=== PATIENT | female | born 1990 | race Caucasian/White ===

== ENCOUNTER 2017-02-04 08:52 | Emergency (ER) | payer OTHER ==
[2017-02-04 08:52] VITALS: BMI 28.8
[2017-02-04 09:03] VITALS: BP 108/72; PULSE 103; RESP 19; TEMP 98.5; O2SAT 97
--- NOTE | 2017-02-04 09:56 | C.PDOC ---
History Of Present Illness A 26 year old female with a history of Asthma, presents to the emergency room for the evaluation of dry cough and nasal congestion that has gradually developed for the past 3-4 days. Patient reports to be 5 months . Patient otherwise denies fever, chills, headache, dizziness, vertigo, drooling, dysphagia, dyspnea, chest pain, shortness of breath, wheezing, abd. pain, nausea , vomiting, diarrhea, back pain, UTI sx, vaginal bleeding or any other complaints. Patient sts, " I just need my Asthma medication since I ran out of it at home". Pt present with son who also patient of ED with similar sx, not n any apparent distress. Time Seen by Provider: 02/04/17 09:34 Chief Complaint (Nursing): Respiratory Distress History Per: Patient History/Exam Limitations: None Onset/Duration Of Symptoms: Days (3-4), Gradual Current Symptoms Are (Timing): Still Present Severity: Mild Past Medical History Reviewed: Historical Data, Nursing Documentation, Vital Signs Vital Signs: Last Vital Signs Temp 98.5 F 02/04/17 09:03 Pulse 103 H 02/04/17 09:03 Resp 19 02/04/17 09:03 BP 108/72 02/04/17 09:03 Pulse Ox 97 02/04/17 10:46 - Medical History PMH: Asthma Surgical History: - [facility] Procedures EXTRACTION OF POC, LOW CERVICAL, OPEN APPROACH (11/10/15) Family History: States: Unknown Family Hx - Social History Hx Tobacco Use: No Hx Alcohol Use: No Hx Substance Use: No - Immunization History Hx Tetanus Toxoid Vaccination: No Hx Influenza Vaccination: No Hx Pneumococcal Vaccination: No Review Of Systems Except As Marked, All Systems Reviewed And Found Negative. Constitutional: Negative for: Fever, Chills ENT: Positive for: Nose Congestion Cardiovascular: Negative for: Chest Pain Respiratory: Positive for: Cough (Dry cough). Negative for: Shortness of Breath Gastrointestinal: Negative for: Nausea, Vomiting, Diarrhea Physical Exam - Physical Exam Appears: Well, Non-toxic Skin: Normal Color, Warm, Dry, No Rash Eye(s): bilateral: PERRL Ear(s): Bilateral: Normal Nose: Discharge (B/L nasal congestion with scant clear rhinorhea), No Tenderness Oral Mucosa: Moist Tongue: Normal Appearing, No Swelling Lips: Normal Appearing, No Swelling Throat: Normal, No Erythema, No Exudate, No Drooling Neck: Normal ROM, Trachea Midline, No Midline Cervical Tenderness, No Paracervical Tenderness, Supple Cardiovascular: Rhythm Regular Respiratory: No Decreased Breath Sounds, No Accessory Muscle Use, No Rales, No Rhonchi, No Stridor, No Wheezing Gastrointestinal/Abdominal: Soft, No Tenderness, No Guarding, No Rebound, Other (Gravid) Back: No CVA Tenderness Extremity: Normal ROM, No Pedal Edema Neurological/Psych: Oriented x3, Normal Speech, Normal Cognition ED Course And Treatment O2 Sat by Pulse Oximetry: 97 Pulse Ox Interpretation: Normal Progress Note: On re-eavluation, pt is afebrile, hemodynamicaly stable. Non- toxic. AMbulatory in ED with stable gait. PulseOx 97% RA. ENT: no acute findings. Neck: (-) meningeal sign. Lungs: CTA B/L, BS equal B/L. Abd: benign. Pt has clinical findings c/w URI sx r/o seasonal allergy, hx of asthma. Pt advised. ref. to F/u with PMD In 2-3 days for re-eavl. return if any new changes. Disposition Counseled Patient/Family Regarding: Diagnosis, Need For Followup, Rx Given - Disposition Referrals: [facility] [Outside] [facility] [Outside] Disposition: HOME/ ROUTINE Disposition Time: 09:54 Condition: STABLE Additional Instructions: Encourage fluids nebulizer treatment twice daily Follow up with PMD in 2-3 days for re-evaluation. Return to ED if any worsening or new changes. Prescriptions: Albuterol 0.083% [Albuterol 0.083% Inhal Missy (2.5 mg/3 ml) UD] 2.5 mg IH Q6 #50 neb Albuterol HFA [Ventolin HFA 90 mcg/actuation (8 g)] 1 puff IH Q6 #1 inhaler Prednisone [Deltasone] 20 mg PO DAILY #3 tablet Instructions: Asthma (ED) - Clinical Impression Clinical Impression: Asthma - Scribe Statement The provider has reviewed the documentation as recorded by the Chelyibjosias Blue All medical record entries made by the Scribe were at my direction and personally dictated by me. I have reviewed the chart and agree that the record accurately reflects my personal performance of the history, physical exam, medical decision making, and the department course for this patient. I have also personally directed, reviewed, and agree with the discharge instructions and disposition.
== END 2017-02-04 10:44 | disposition home or self-care (01) ==
LOC: C.ER 08:52
DX: O99.512 Diseases of the respiratory system complicating pregnancy, second trimester (principal); J45.909 Unspecified asthma, uncomplicated; Z3A.20 20 weeks gestation of pregnancy

== ENCOUNTER 2017-03-04 08:39 | Emergency (ER) | payer OTHER ==
[2017-03-04 08:39] VITALS: BMI 28.8
--- NOTE | 2017-03-04 08:47 | C.PDOC ---
History Of Present Illness 26-year-old female, presents to the emergency department with complaints of persistent asthma x1 month. Patient seen on 02/04, discharged with Prednisone and Albuterol, but did not take Prednisone "because my OB said it isn't good for the baby." States ran out of Albuterol. States she gets more frequent asthma while . EGA 6 months. Patient is s/p nebulizer prior to arrival w/ improvement. Pt complaining of mild residual wheezing. Denies other associated symptoms. CO PERSIST ASTHMA X 1 MO. SEEN 02/04, DC W PREDNISONE AND ALBUTEROL BUT DID NOT TAKE PREDNISONE "BC MY OB SAID IT ISNT GOOD FOR THE BABY". STATES RAN OUT OF ALBUTEROL. STATES GETS MORE FREQ ASTHMA WHILE . EGA 6 MONTHS. 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 CO MILD RESIDUAL WHEEZING. DENIES OTHER ASSOC SX EXAM NARD NONTOXIC LUNGS OCC EXP WHEEZE SCATTERED SPEAKING FULL SENTENCES NO RETRACTIONS REMAINDE RNEG MDM RISKS/BENEFITS OF PREDNISONE D/W PT, VOICES UNDERSTANDING OF SAME. AGREES W MGMT PLAN, WILL DOSE STEROID NOW AND REFILL MEDS. PT OFFERED ALBUTEROL DOSE NOW BUT DOES NOT WISH @ THIS TIME. Time Seen by Provider: 03/04/17 08:46 Chief Complaint (Nursing): Respiratory Distress History Per: Patient History/Exam Limitations: no limitations Onset/Duration Of Symptoms: Days Current Symptoms Are (Timing): Still Present Past Medical History Reviewed: Historical Data, Nursing Documentation, Vital Signs Vital Signs: Last Vital Signs Temp 98.5 F 03/04/17 09:42 Pulse 88 03/04/17 09:42 Resp 18 03/04/17 09:42 BP 122/76 03/04/17 09:42 Pulse Ox 100 03/04/17 09:42 - Medical History PMH: Asthma Surgical History: - [facility] Procedures EXTRACTION OF POC, LOW CERVICAL, OPEN APPROACH (11/10/15) Family History: States: No Known Family Hx - Social History Hx Tobacco Use: No Hx Alcohol Use: No Hx Substance Use: No - Immunization History Hx Tetanus Toxoid Vaccination: No Hx Influenza Vaccination: No Hx Pneumococcal Vaccination: No Review Of Systems Except As Marked, All Systems Reviewed And Found Negative. Constitutional: Negative for: Fever, Chills Cardiovascular: Negative for: Chest Pain, Palpitations Respiratory: Positive for: Shortness of Breath, Wheezing Gastrointestinal: Negative for: Nausea, Vomiting Genitourinary: Negative for: Vaginal Discharge, Vaginal Bleeding Physical Exam - Physical Exam Appears: Non-toxic, No Acute Distress Skin: Warm, Dry, No Rash Eye(s): bilateral: Normal Inspection Nose: Normal Oral Mucosa: Moist Neck: Normal ROM Respiratory: No Accessory Muscle Use, Wheezing, Other ( OCC EXP WHEEZE SCATTERED SPEAKING FULL SENTENCES NO RETRACTIONS) Extremity: Normal ROM ED Course And Treatment O2 Sat by Pulse Oximetry: 99 Progress - Re-Evaluation Re-evaluation Note: 03/04/17 09:10 D/W DR RAMOS ADVISES NO CONTRAINDICATION FOR 5 DAY PREDNISONE DOSING. - Data Reviewed Data Reviewed: Old records - Continuity of Care Discussed patient case with:: Patient Discussed pt. case with websphere consultant/specialty: Obstetrics/Gynecology Medical Decision Making Medical Decision Making: RISKS/BENEFITS OF PREDNISONE D/W PT, VOICES UNDERSTANDING OF SAME. AGREES W MGMT PLAN, WILL DOSE STEROID NOW AND REFILL MEDS. PT OFFERED ALBUTEROL DOSE NOW BUT DOES NOT WISH @ THIS TIME Disposition Counseled Patient/Family Regarding: Diagnosis, Need For Followup, Rx Given - Disposition Referrals: [facility] [Outside] [facility] [Outside] [facility] [Other] Disposition: HOME/ ROUTINE Disposition Time: : Condition: IMPROVED Prescriptions: Albuterol 0.083% [Albuterol Sulfate 3 Ml] 3 ml IH Q4 #30 neb Albuterol HFA [Ventolin HFA 90 mcg/actuation (8 g)] 1 puff IH Q4 #1 inhaler predniSONE [Prednisone] 60 mg PO DAILY #12 tab Instructions: Asthma (ED) - Clinical Impression Clinical Impression: Exacerbation of asthma,
[2017-03-04 09:43] VITALS: BP 122/76; PULSE 88; RESP 18; TEMP 98.5
[2017-03-04 10:51] VITALS: O2SAT 99
== END 2017-03-04 09:44 | disposition home or self-care (01) ==
LOC: C.ER 08:39
DX: O99.512 Diseases of the respiratory system complicating pregnancy, second trimester (principal); J45.901 Unspecified asthma with (acute) exacerbation; Z3A.24 24 weeks gestation of pregnancy

== ENCOUNTER 2017-04-14 17:14 | Emergency (ER) | payer OTHER ==
[2017-04-14 17:14] VITALS: BMI 28.8
--- NOTE | 2017-04-14 17:46 | C.PDOC ---
History Of Present Illness 26 y/o female referred to ED by Dr Spears for rhogam shot. Expected due date 06/15/17. Denies abdominal pain, vomiting, vaginal bleeding or any other complaints. Time Seen by Provider: 04/14/17 17:37 Chief Complaint (Nursing): Medical Clearance History Per: Patient History/Exam Limitations: no limitations Severity: None Recent travel outside of the [place]: No Past Medical History Reviewed: Historical Data, Nursing Documentation, Vital Signs Vital Signs: Last Vital Signs Temp 98.3 F 04/14/17 17:20 Pulse 121 H 04/14/17 17:20 Resp 16 04/14/17 17:20 BP 118/81 04/14/17 17:20 Pulse Ox 100 04/14/17 17:56 - Medical History PMH: Asthma Surgical History: - [facility] Procedures EXTRACTION OF POC, LOW CERVICAL, OPEN APPROACH (11/10/15) Family History: States: Unknown Family Hx - Social History Hx Tobacco Use: No Hx Alcohol Use: No Hx Substance Use: No - Immunization History Hx Tetanus Toxoid Vaccination: No Hx Influenza Vaccination: No Hx Pneumococcal Vaccination: No Review Of Systems Constitutional: Negative for: Fever Gastrointestinal: Negative for: Vomiting, Abdominal Pain Genitourinary: Negative for: Vaginal Bleeding Physical Exam - Physical Exam Appears: Non-toxic, No Acute Distress Skin: Warm, Dry, No Rash Head: Atraumatic, Normacephalic Chest: Symmetrical Cardiovascular: Rhythm Regular, No Murmur Respiratory: Normal Breath Sounds, No Rales, No Rhonchi, No Wheezing Gastrointestinal/Abdominal: Normal Exam, No Tenderness Extremity: Bilateral: Atraumatic Neurological/Psych: Oriented x3, Normal Speech ED Course And Treatment O2 Sat by Pulse Oximetry: 100 (room air) Pulse Ox Interpretation: Normal Disposition Counseled Patient/Family Regarding: Studies Performed, Diagnosis, Need For Followup - Disposition Referrals: [facility] [Outside] [facility] [Outside] Disposition: HOME/ ROUTINE Disposition Time: 19:00 Condition: IMPROVED Instructions: Rho(D) Immune Globulin (By injection) - Clinical Impression Clinical Impression: , Need for rhogam due to Rh negative mother - Scribe Statement The provider has reviewed the documentation as recorded by the Willian estevez Provider Attestation: All medical record entries made by the Chelyibjosias were at my direction and personally dictated by me. I have reviewed the chart and agree that the record accurately reflects my personal performance of the history, physical exam, medical decision making, and the department course for this patient. I have also personally directed, reviewed, and agree with the discharge instructions and disposition.
[2017-04-14 18:55] VITALS: RESP 18
[2017-04-14 19:34] VITALS: BP 128/75; PULSE 99; TEMP 98.2; O2SAT 99
== END 2017-04-14 19:33 | disposition home or self-care (01) ==
LOC: C.ER 17:14
DX: O36.0930 Maternal care for other rhesus isoimmunization, third trimester, not applicable or unspecified (principal); Z3A.00 Weeks of gestation of pregnancy not specified
CPT/HCPCS: 86850; 86900; 99282; J2792

== ENCOUNTER 2017-05-01 12:48 | Emergency (ER) | payer OTHER ==
[2017-05-01] MEDS ORDERED: Lactated Ringer's 1,000 ML IV ONE (13:05)
--- NOTE | 2017-05-01 13:28 | OBHP ---
Datetime: 05/01/2017 13:23 IP Adm Impression: , intrauterine IP Admit Plan: Observation/Evaluation Admit Comment, IP Provider: at 32+weeks came with c/o cramping started last night, irrg, 4-5/10 ,no vb, lof,+fm, no dysuria. obhx 1 x c/s pmh den med pnv all nkda psh c/s soch de ve closed a/p at 32+weeks txs ua cont andrea and efm ivf cont close observation Pelvic Type - PN: Adequate Extremities - PN: Normal Abdomen - PN: Normal Back - PN: Normal Breast - PN: Normal Lungs - PN: Normal Heart - PN: Normal Thyroid - PN: Normal Neurologic - PN: Normal HEENT - PN: Normal General - PN: Normal FHR - Baseline A Provider: 130 Contraction Comments Provider: q1-4 Comments, ACOG Physical Exam: gravid,non tender ext no edema,no calf ten IP Hx Assessment: The History has been Reviewed and is Current EGA AdmitDate IP: 32.2 Vital Signs Provider: Reviewed; Within Normal Limits IP Chief Complaint: Uterine contractions NICHD Variability Prov Fetus A: Moderate 6-25bpm NICHD Accel Fetus A IP Provider: 10X10 FHR Category Provider Fetus A: Category I Dilatation, Provider: 0 Effacement, Provider: 0 Station, Provider: -3 Genitourinary Exam: Normal DTRs - PN: Normal
[2017-05-01 13:43] LABS: RBC URINE < 1 /hpf (0-3); URINE BILIRUBIN NEGATIVE (NEGATIVE); URINE BLOOD NEGATIVE (NEGATIVE); URINE COLOR Yellow (YELLOW); URINE GLUCOSE (UA) NORMAL (Normal); URINE KETONE 2+ mg/dL (NEGATIVE); URINE LEUKOCYTE ESTERASE NEG Leu/uL (Negative); URINE PROTEIN NEGATIVE (NEGATIVE); URINE UROBILINOGEN NORMAL mg/dL (0.2-1.0); WBC URINE 1 /hpf (0-5)
--- NOTE | 2017-05-01 14:18 | OBHP ---
Datetime: 05/01/2017 14:16 Admit Comment, IP Provider: pt was seen. feels better, no pain or vb. ua 2=le ivf given f/u in office next saturday po hyration ptl givn FHR - Baseline A Provider: 130 Contraction Comments Provider: none NICHD Variability Prov Fetus A: Moderate 6-25bpm NICHD Accel Fetus A IP Provider: 10X10 FHR Category Provider Fetus A: Category I Datetime: 05/01/2017 13:23 EGA AdmitDate IP: 32.2
--- NOTE | 2017-05-01 14:20 | OBDCSUM ---
Datetime: 05/01/2017 14:17 Discharged to, Provider: Home Follow up at, Provider: saturdaymay 07 Follow up in weeks, Provider: dr yanez office Discharge Comment, Provider: f/u in office next saturday po hyration ptl givn Discharge Diagnosis Prov Other: 32week prterm ctxs nst
== END 2017-05-01 14:17 | disposition home or self-care (01) ==
LOC: C.EROB 12:48
DX: O60.03 Preterm labor without delivery, third trimester (principal); Z3A.32 32 weeks gestation of pregnancy
CPT/HCPCS: 81001; 96360; 99283; J7120

== ENCOUNTER 2017-06-14 05:00 | Inpatient (IN) | payer OTHER ==
[2017-06-14 05:47] VITALS: BMI 27.9
[2017-06-14 06:07] LABS: BASO % 0.4 % (0.0-2.0); EOS # 0.1 K/uL (0.0-0.7); EOS % 1.1 % (0.0-4.0); HEMATOCRIT 33.5 % (34.0-47.0); LYMPH # 1.9 K/uL (1.0-4.3); LYMPH % 18.7 % (20.0-40.0); MEAN CELL VOLUME 83.6 fL (81.0-99.0); MEAN CORPUSCULAR HEMOGLOBIN 28.2 pg (27.0-31.0); MEAN CORPUSCULAR HGB CONC 33.7 g/dL (33.0-37.0); MEAN PLATELET VOLUME 10.6 fL (7.2-11.7); MONO # 0.6 K/uL (0.0-0.8); MONO % 5.6 % (0.0-10.0); NRBC % 0.1 % (0.0-2.0); RED CELL DISTRIBUTION WIDTH 13.7 % (11.5-14.5); WHITE BLOOD COUNT 9.9 K/uL (4.8-10.8)
--- NOTE | 2017-06-14 06:09 | OBHP ---
Datetime: 06/14/2017 05:15 IP Adm Impression: Term, intrauterine IP Chief Complaint Other: pain IP Admit Plan: Admit to unit; Initiate Section protocol Admit Comment, IP Provider: at 38+weeks came with c/o ctxs since last night, irrg , no vb, lof, +fm obhx 1 x c/s pmh den med pnv all nkda psh c/s soch den ve /-2 a/p at 38+weeks previous c/s in pain admit to l_d npo/ivf labs skin abxs anthesia aware informed consent taken. r/a/b disc Pelvic Type - PN: Adequate Extremities - PN: Normal Abdomen - PN: Normal Back - PN: Normal Breast - PN: Normal Lungs - PN: Normal Heart - PN: Normal Thyroid - PN: Normal Neurologic - PN: Normal HEENT - PN: Normal General - PN: Normal FHR - Baseline A Provider: 130 Contraction Comments Provider: q1-5 Comments, ACOG Physical Exam: gravid,non tender ext no edema,no calf ten IP Hx Assessment: The History has been Reviewed and is Current EGA AdmitDate IP: 38.4 Vital Signs Provider: Reviewed; Within Normal Limits IP Chief Complaint: Uterine contractions NICHD Variability Prov Fetus A: Moderate 6-25bpm NICHD Accel Fetus A IP Provider: 15X15 FHR Category Provider Fetus A: Category I Dilatation, Provider: 2 Effacement, Provider: 60 Station, Provider: -2 Genitourinary Exam: Normal DTRs - PN: Normal
[2017-06-14] MEDS ORDERED: Sodium Citrate/Citric Acid 15 ml Sol PO ONE (06:11)
[2017-06-14] MEDS ORDERED: cefOXitin IV 2 gm in Dextrose 2 GM/50 ML BAG IVPB ONE (06:11)
--- NOTE | 2017-06-14 06:14 | PCM.SURG1 ---
Surgeon's Initial Post Op Note - Surgeon's Notes Surgeon: dr diaz Fresh Food Manager: dr hua Type of Anesthesia: Spinal Anesthesia Administered By: dr malone Pre-Operative Diagnosis: 26 yr at 38+weeks previous c/s in pain Operative Findings: see the op reort Post-Operative Diagnosis: same Operation Performed: repeat section Specimen/Specimens Removed: cord blood. plcente Estimated Blood Loss: EBL {In ML}: 800 Blood Products Given: N/A Drains Used: No Drains Post-Op Condition: Good Date of Surgery/Procedure: 06/14/17 Time of Surgery/Procedure: 09:00
[2017-06-14] MEDS ORDERED: Lactated Ringer's 1,000 ML IV SCH (06:15)
[2017-06-14] MEDS ORDERED: TRIAMCINOLONE ACETON IM ONE (06:19)
[2017-06-14 06:22] LABS: ALB/GLOB RATIO 0.9 (1.0-2.1); ALKALINE PHOSPHATASE 216 U/L (38-126); ALT/SGPT 25 U/L (9-52); AST/SGOT 17 U/L (14-36); BILIRUBIN,TOTAL 0.7 mg/dL (0.2-1.3); BLOOD UREA NITROGEN 9 mg/dL (7-17); CALCIUM 9.2 mg/dl (8.6-10.4); CARBON DIOXIDE 19 mmol/L (22-30); CHLORIDE 105 mmol/L (98-107); GFR AFRICAN-AMERICAN > 60; GLUCOSE,RANDOM 77 mg/dL (65-105); POTASSIUM 3.7 mmol/L (3.6-5.2); SODIUM 138 mmol/L (132-148); TOTAL PROTEIN 6.8 g/dL (6.3-8.3)
[2017-06-14 06:26] LABS: URINE BACTERIA OCC (<OCC); URINE BILIRUBIN NEGATIVE (NEGATIVE); URINE BLOOD NEGATIVE (NEGATIVE); URINE COLOR Yellow (YELLOW); URINE GLUCOSE (UA) NORMAL (Normal); URINE KETONE 1+ mg/dL (NEGATIVE); URINE LEUKOCYTE ESTERASE NEG Leu/uL (Negative); URINE PROTEIN 1+ mg/dL (NEGATIVE); WBC URINE 1 /hpf (0-5)
[2017-06-14] MEDS ORDERED: Morphine 1 mg/ml preservative-free Inj(Duramorph) ONE (06:46)
[2017-06-14] MEDS ORDERED: Phenylephrine 10 mg/ml Inj ONE (06:46)
[2017-06-14] MEDS ORDERED: Oxytocin 20 units in LR 2,000 ML IV ONE (06:49)
[2017-06-14] MEDS ORDERED: Oxytocin 10 Units/ml Inj ONE (07:27)
--- NOTE | 2017-06-14 08:04 | OBDS ---
DELIVERY PERSONNEL Delivery Doctor: Robin Spears MD Scrub Nurse: Ankita Mahoney Armored Cable Machine Operator: Lashanda Wing RN Anesthesiologist: Maria R Solorzano MD MATERNAL INFORMATION Delivery Anesthesia: Spinal Estimated Blood Loss (ml): 800 Placenta Cultured: Yes Maternal Complications: None Provider Comments: baby deliverd in [place]. end clean no om LABOR SUMMARY EDC: 06/24/2017 00:00 No. Babies in Womb: 1 LABOR INFORMATION Group B Beta Strep: Negative STAGES OF LABOR Stage 3 hrs: 0 Stage 3 min: 1 CSECTION DELIVERY Primary Indication: Repeat Elective Other Primary Indication: labor CSection Urgency: Non Elective CSection Incidence: Repeat Labor: Labor CSection Incision: Lower Uterine Transverse BABY A INFORMATION Delivery Date/Time: 06/14/2017 07:23 Method of Delivery: Born in Route : No : N/A Forceps: N/A Vacuum Extraction: N/A Shoulder Dystocia : No SHOULDER DYSTOCIA BABY A Delivery Date/Time: 06/14/2017 07:23 PRESENTATION/POSITION BABY A Presentation: Cephalic Cephalic Presentation: Vertex Vertex Position: Left Occipital Anterior Breech Presentation: N/A PLACENTA INFORMATION BABY A Placenta Delivery Time : 06/14/2017 07:24 Placenta Method of Delivery: Manual Removal Placenta Status: Delivered SCORES BABY A Heart Rate 1 min: >100 bpm Resp Effort 1 min: Good Cry Reflex Irritability 1 min: Cough or Sneeze or Pulls Away Muscle Tone 1 min: Active Motion Color 1 min: Body [place], Extremities Blue Resuscitation Effort 1 min: Tactile Stimulation SCORE 1 MIN: 9 Heart Rate 5 min: >100 bpm Resp Effort 5 min: Good Cry Reflex Irritability 5 min: Cough or Sneeze or Pulls Away Muscle Tone 5 min: Active Motion Color 5 min: Body [place], Extremities Blue SCORE 5 MIN: 9 INFANT INFORMATION BABY A Gestational Age at Delivery: 38.4 Gestational Status: Term Infant Outcome : Liveborn Condition : Stable Infant Sex: Female IDENTIFICATION/MEDS BABY A ID Band Number: [id number] ID Band Location: Left Leg; Left Arm Sensor Applied: Yes Sensor Number: [id number] Sensor Location : Cord Clamp Vitamin K Given : Not Given Erythromycin Given: Not Given WEIGHT/LENGTH BABY A Infant Birthweight (gms): 3385 Infant Weight (lb): 7 Weight (oz): 7 CORD INFORMATION BABY A No. Cord Vessels: 3 Nuchal Cord : N/A Cord Blood Taken: Yes Suction: Mouth; Nose ASSESSMENT BABY A Complications: None Physical Findings at Delivery: Within Normal Limits Respirations: Appears Normal Beam Warper/ALS Called : No Infant Care By: Sal Pablo RN Transferred To: Remains with Mother
[2017-06-14] MEDS ORDERED: DiphenhydrAMINE 50 mg/ml Inj IVP PRN (08:51)
[2017-06-14] MEDS ORDERED: Naloxone 0.4 mg/ml Inj (Adult) IVP PRN (08:52)
[2017-06-14] MEDS ORDERED: Acetaminophen IV 1,000 MG in Premixed IV 1 EA IV STA (09:51)
[2017-06-14] MEDS: Simethicone 80 mg Chewtab PO SCH ×4 (10:00→21:44)
[2017-06-14] MEDS: Oxycodone/Acetaminophen 5/325 mg Tab PO PRN ×3 (15:01→23:37)
[2017-06-15] MEDS: Oxycodone/Acetaminophen 5/325 mg Tab PO PRN ×4 (05:04→20:39)
[2017-06-15] MEDS ORDERED: Bisacodyl 5mg EC Tab PO ONE ×2 (06:57→18:00)
[2017-06-15 08:34] LABS: HEMATOCRIT 31.1 % (34.0-47.0); MEAN CELL VOLUME 84.8 fL (81.0-99.0); MEAN PLATELET VOLUME 10.4 fL (7.2-11.7); RED CELL DISTRIBUTION WIDTH 13.7 % (11.5-14.5); WHITE BLOOD COUNT 10.8 K/uL (4.8-10.8)
[2017-06-15] MEDS: Simethicone 80 mg Chewtab PO SCH ×4 (09:09→21:46)
[2017-06-16] MEDS: Oxycodone/Acetaminophen 5/325 mg Tab PO PRN ×6 (01:04→21:57)
[2017-06-16] MEDS ORDERED: Albuterol HFA 90 mcg/actuation (8 g) INH PRN (07:39)
[2017-06-16] MEDS: Simethicone 80 mg Chewtab PO SCH ×4 (09:05→21:58)
[2017-06-17 00:04] VITALS: RESP 20
[2017-06-17] MEDS: Oxycodone/Acetaminophen 5/325 mg Tab PO PRN (02:35)
[2017-06-17] MEDS: Simethicone 80 mg Chewtab PO SCH ×2 (09:15→13:30)
[2017-06-17] MEDS ORDERED: Oxycodone/Acetaminophen 5/325 mg Tab PO PRN ×2 (10:06)
[2017-06-17] MEDS ORDERED: Measles, Mumps, and Rubella 0.5 ML VIAL SC ONE (11:07)
[2017-06-17 18:52] VITALS: BP 128/86; PULSE 100; TEMP 98.6; O2SAT 97
--- NOTE | 2017-06-19 16:11 | OP ---
PROCEDURE DATE: PREOPERATIVE DIAGNOSIS: A 26-year-old 2 para 1 at 38 weeks and 4 days with previous section. POSTOPERATIVE DIAGNOSIS: A 26-year-old 2 para 1 at 38 weeks and 4 days with previous section. SURGEON: Robin Spears MD RECYCLING MANAGER SURGEON: Dr. Vinnie Joy, who was present throughout the surgery for exposure, retraction, pushing at the time of the delivery. TYPE OF ANESTHESIA: Spinal. ANESTHESIOLOGIST: Tylor Menjivar MD COMPLICATIONS: None. ESTIMATED BLOOD LOSS: 800 mL. PROCEDURE PERFORMED: Repeat section. DESCRIPTION OF PROCEDURE: After informed consent was obtained, the patient was brought to the operating room, placed on the table, where spinal anesthesia was given. When anesthesia was found to be sufficient, she was prepped and draped in normal sterile fashion. At the site of the previous skin incision, an incision was made with a knife, the subcutaneous cut with a Bovie. The fascia was then excised on both the sides using curved Strong scissors. The fascia was first from the site of the umbilicus and then at the site of the pubic bone. The rectal muscle was lifted up with 2 Allis, it was cut using the knife, the peritoneum was incised and we went to the abdominal cavity. Bladder blade was placed. Bladder flap was created. Lower uterine segment incision was made with a knife, it was extended using curved Strong scissors. Baby delivered in a KIRK position. Cord was clamped and cut. Baby was handed over to the awaiting buckle coverer. Uterus was exteriorized and cleared of all clots and debris. The uterus incision was closed with #1 Vicryl running interlocking fashion. Second layer was closed with the same stitch and it was hemostatic. Uterus was returned back to abdominal cavity. Interceed was placed. It was looked back and again it was hemostatic. Peritoneum was closed using 2-0 Vicryl in running interlocking fashion. Muscle was closed using 2-0 Vicryl in running interlocking fashion. Fascia was closed #1 Vicryl interlocking fashion. Subcutaneous tissue was closed with 0 Vicryl in interrupted fashion. Skin was closed using starr. The patient tolerated the procedure well. Lap, sponge, and instrument counts were correct x2. Robin Spears MD [facility] # [id number]
== END 2017-06-17 14:15 | disposition home or self-care (01) | DRG 371 ==
LOC: C.EROB 05:00 → C.4D 05:15 → C.4M 11:20 → UNDODISIN 06-16 13:30
PROVIDERS: ADMIT Obstetrics & Gynecology; ATTEND Obstetrics & Gynecology
PROC: 10D00Z1 Extraction of Products of Conception, Low, Open Approach (ICD-10-PCS; principal; 2017-06-14)
DX: O34.219 Maternal care for unspecified type scar from previous cesarean delivery (principal); Z37.0 Single live birth; Z3A.38 38 weeks gestation of pregnancy

== ENCOUNTER 2017-10-23 17:33 | Emergency (ER) | payer SELFPAY ==
[2017-10-23 17:33] VITALS: BMI 27.9
[2017-10-23 17:45] VITALS: BP 111/72; PULSE 94; RESP 18; TEMP 98.3; O2SAT 95
--- NOTE | 2017-10-23 18:26 | RAD ---
HISTORY: Cough, SOB COMPARISON: None available. TECHNIQUE: Chest PA and lateral FINDINGS: Examination limited by habitus. LUNGS: No focal consolidation. Please note that chest x-ray has limited sensitivity for the detection of pulmonary masses. PLEURA: No significant pleural effusion identified. No definite pneumothorax . CARDIOVASCULAR: The cardiomediastinal silhouette appears within normal limits of size. OSSEOUS STRUCTURES: No acute osseous abnormality identified. VISUALIZED UPPER ABDOMEN: Unremarkable. OTHER FINDINGS: None. IMPRESSION: No focal consolidation, significant pleural effusion, or definite pneumothorax identified.
--- NOTE | 2017-10-23 18:27 | C.PDOC ---
Time Seen by Provider: 10/23/17 17:50 Chief Complaint (Nursing): Cough, Cold, Congestion History Per: Patient Onset/Duration Of Symptoms: Days (about 1 week) Current Symptoms Are (Timing): Still Present Associated Symptoms: Cough, Sputum, Nasal Congestion Severity: Moderate Additional History Per: Prior Records Past Medical History Reviewed: Historical Data, Nursing Documentation, Vital Signs Vital Signs: Last Vital Signs Temp 98.3 F 10/23/17 17:42 Pulse 94 H 10/23/17 17:42 Resp 18 10/23/17 17:42 BP 111/72 10/23/17 17:42 Pulse Ox 95 10/23/17 18:27 - Medical History PMH: Asthma Surgical History: - [facility] Procedures EXTRACTION OF POC, LOW CERVICAL, OPEN APPROACH (06/14/17) Family History: States: Unknown Family Hx - Social History Hx Tobacco Use: No Hx Alcohol Use: No Hx Substance Use: No - Immunization History Hx Tetanus Toxoid Vaccination: No Hx Influenza Vaccination: No Hx Pneumococcal Vaccination: No Review Of Systems Except As Marked, All Systems Reviewed And Found Negative. Constitutional: Negative for: Fever, Weakness ENT: Negative for: Throat Pain Cardiovascular: Negative for: Chest Pain Respiratory: Positive for: Cough, Shortness of Breath. Negative for: Hemoptysis Gastrointestinal: Negative for: Vomiting, Abdominal Pain Musculoskeletal: Negative for: Neck Pain, Back Pain, Leg Pain Skin: Negative for: Rash Neurological: Negative for: Weakness, Numbness Physical Exam - Physical Exam Appears: Non-toxic, No Acute Distress Skin: Normal Color, Warm, Dry, No Rash Head: Atraumatic, Normacephalic Eye(s): bilateral: Normal Inspection, PERRL, EOMI Neck: Normal ROM, Supple Cardiovascular: Rhythm Regular Respiratory: Normal Breath Sounds, No Accessory Muscle Use Gastrointestinal/Abdominal: Soft, No Tenderness Back: No CVA Tenderness Extremity: Normal ROM, No Pedal Edema, No Calf Tenderness Neurological/Psych: Oriented x3, Normal Speech, Normal Motor, Normal Sensation ED Course And Treatment O2 Sat by Pulse Oximetry: 95 Pulse Ox Interpretation: Normal - Radiology CXR: Viewed By Me, Read By Radiologist CXR Interpretation: Yes: No Acute Disease Reassessment Condition: Improved Disposition Counseled Patient/Family Regarding: Studies Performed, Diagnosis, Need For Followup, Rx Given - Disposition Referrals: [facility] [Outside] Disposition: HOME/ ROUTINE Disposition Time: 18:29 Condition: STABLE Additional Instructions: Follow up with your doctor or in the clinic. Return to the ER if you develop shortness of breath, high fever, lethargy, worsening of symptoms or if you have any other concerns. Prescriptions: Albuterol HFA [Ventolin HFA 90 mcg/actuation (8 g)] 2 puff IH Q4 PRN #1 unit PRN Reason: Wheezing predniSONE [predniSONE Tab] 2 tab PO DAILY #8 tab Instructions: Cold Symptoms (ED) Forms: General Discharge Instructions - Clinical Impression Clinical Impression: Upper respiratory infection, Reactive airway disease
== END 2017-10-23 18:38 | disposition home or self-care (01) ==
LOC: C.ER 17:33
DX: J06.9 Acute upper respiratory infection, unspecified (principal); J45.909 Unspecified asthma, uncomplicated

== ENCOUNTER 2018-05-06 10:42 | Emergency (ER) | payer SELFPAY ==
[2018-05-06 10:43] VITALS: BMI 27.9
--- NOTE | 2018-05-06 11:43 | C.PDOC ---
History Of Present Illness 27yo female with history of asthma, comes to ER complaining of chest pressure and shortness of breath, similar to her prior episodes of an asthma attack. Patient states she has been taking her nebulizer and inhaler with no relief of symptoms. She states in the past, she has been admitted for asthma but denies any intubation. Patient reports associated cough but denies any fever, chills, vomiting, and recent illnesses. Time Seen by Provider: 05/06/18 10:56 Chief Complaint (Nursing): Shortness Of Breath History Per: Patient History/Exam Limitations: no limitations Onset/Duration Of Symptoms: Persistent Quality: Tightness Severity: Moderate Past Medical History Reviewed: Historical Data, Nursing Documentation, Vital Signs Vital Signs: Last Vital Signs Temp 98.7 F 05/06/18 13:19 Pulse 87 05/06/18 13:19 Resp 18 05/06/18 13:19 BP 119/81 05/06/18 13:19 Pulse Ox 100 05/06/18 13:19 - Medical History PMH: Asthma Denies: Depression, HTN Surgical History: - [facility] Procedures EXTRACTION OF POC, LOW CERVICAL, OPEN APPROACH (06/14/17) Family History: States: No Known Family Hx - Social History Hx Tobacco Use: No Hx Alcohol Use: No Hx Substance Use: No - Immunization History Hx Tetanus Toxoid Vaccination: No Hx Influenza Vaccination: No Hx Pneumococcal Vaccination: No Review Of Systems Except As Marked, All Systems Reviewed And Found Negative. Constitutional: Negative for: Fever, Chills Cardiovascular: Positive for: Other (chest pressure) Respiratory: Positive for: Cough, Shortness of Breath Gastrointestinal: Negative for: Vomiting, Abdominal Pain Physical Exam - Physical Exam Appears: Non-toxic, No Acute Distress Skin: Normal Color, No Rash Head: Atraumatic, Normacephalic Eye(s): bilateral: Normal Inspection Ear(s): Bilateral: Normal Oral Mucosa: Moist Neck: Normal ROM, Supple Chest: Symmetrical Cardiovascular: Rhythm Regular Respiratory: Decreased Breath Sounds, No Rales, No Rhonchi, Wheezing (moderate bilateral wheeze) Gastrointestinal/Abdominal: Soft, No Tenderness Extremity: Normal ROM, No Swelling Neurological/Psych: Oriented x3, Normal Speech Gait: Steady ED Course And Treatment - Laboratory Results Result Diagrams: 05/06/18 11:47 05/06/18 11:47 ECG: Interpreted By Me, Viewed By Me ECG Rhythm: Sinus Rhythm ECG Interpretation: Normal Rate From EC O2 Sat by Pulse Oximetry: 100 (RA) Pulse Ox Interpretation: Normal Progress Note: Labs, EKG and CXR ordered. Patient given Duoneb, Solumedrol and a singulair treatment. Labs reviewed with no clinically significant abnormalities. On reeval, patient reports improvement. Lung sounds CTA. Pateint stable for discharge home. Medical Decision Making Medical Decision Making: On re-exam, the patient reports improvement of symptoms. Lungs are CTA, heart is RRR, abdomen is soft, non-tender and tolerating PO well. Ambulatory in the ED with steady gait. Follow up with the medical doctor within 1-2 days, Return if worsened. Disposition - Disposition Referrals: [facility] at [facility] [Outside] Disposition: HOME/ ROUTINE Disposition Time: 12:54 Condition: IMPROVED Additional Instructions: Follow up with the medical doctor within 1-2 days, Return if worsened. Prescriptions: Albuterol HFA [Ventolin HFA 90 mcg/actuation (8 g)] 1 puff IH Q6 #100 puff Montelukast [Singulair] 10 mg PO DAILY #20 tab predniSONE [Prednisone] 20 mg PO BID #10 tab Instructions: Asthma in Adults Forms: [facility] (Hebrew) - Clinical Impression Clinical Impression: Exacerbation of asthma - PA / SEPARATOR TENDER / Resident Statement MD/DO has reviewed & agrees with the documentation as recorded. - Scribe Statement The provider has reviewed the documentation as recorded by the Willian Duke Provider Attestation: All medical record entries made by the Chelyibe were at my direction and personally dictated by me. I have reviewed the chart and agree that the record accurately reflects my personal performance of the history, physical exam, medical decision making, and the department course for this patient. I have also personally directed, reviewed, and agree with the discharge instructions and disposition.
[2018-05-06 11:51] LABS: BASO # 0.1 K/uL (0.0-0.2); BASO % 1.1 % (0.0-2.0); EOS # 0.3 K/uL (0.0-0.7); EOS % 4.2 % (0.0-4.0); LYMPH # 1.7 K/uL (1.0-4.3); LYMPH % 25.9 % (20.0-40.0); MEAN CELL VOLUME 84.8 fL (81.0-99.0); MEAN CORPUSCULAR HEMOGLOBIN 29.8 pg (27.0-31.0); MEAN CORPUSCULAR HGB CONC 35.1 g/dL (33.0-37.0); MEAN PLATELET VOLUME 9.9 fL (7.2-11.7); MONO # 0.3 K/uL (0.0-0.8); MONO % 4.1 % (0.0-10.0); NEUT # 4.3 K/uL (1.8-7.0); NEUT % 64.7 % (50.0-75.0); RBC 4.61 Mil/uL (3.80-5.20); RED CELL DISTRIBUTION WIDTH 13.9 % (11.5-14.5); WHITE BLOOD COUNT 6.6 K/uL (4.8-10.8)
[2018-05-06 11:54] LABS: HEMOGLOBIN 13.7 g/dL (11.0-16.0)
[2018-05-06 11:57] VITALS: RESP 18
[2018-05-06] MEDS: Albuterol-Ipratrop 3 mg / 0.5 (3 ml) UD IH SCH ×2 (12:00→12:10)
[2018-05-06 12:03] VITALS: O2SAT 100
[2018-05-06 12:06] LABS: ALB/GLOB RATIO 1.5 (1.0-2.1); ALBUMIN 4.5 g/dL (3.5-5.0); ALT/SGPT 21 U/L (9-52); AST/SGOT 19 U/L (14-36); BLOOD UREA NITROGEN 12 mg/dL (7-17); CALCIUM 9.1 mg/dl (8.6-10.4); GFR AFRICAN-AMERICAN > 60; GFR NON-AFRICAN AMERICAN > 60
[2018-05-06] MEDS ORDERED: Albuterol-Ipratrop 3 mg / 0.5 (3 ml) UD ONE (12:07)
--- NOTE | 2018-05-06 12:43 | RAD ---
Date of service: 05/06/2018 HISTORY: cough, asthma, SOB COMPARISON: GoNo prior. TECHNIQUE: 10/23/2017 FINDINGS: LUNGS: No active pulmonary disease. PLEURA: No significant pleural effusion identified. No pneumothorax apparent. CARDIOVASCULAR: Normal. OSSEOUS STRUCTURES: No significant abnormalities. VISUALIZED UPPER ABDOMEN: Normal. OTHER FINDINGS: None. IMPRESSION: No active disease.
[2018-05-06 13:20] VITALS: BP 119/81; PULSE 87; TEMP 98.7
--- NOTE | 2018-05-08 21:37 | CARD ---
APPROVED REPORT Date of service: 05/06/2018 EKG Measurement Heart [id number] <Conclusion> Normal sinus rhythm Normal ECG
== END 2018-05-06 13:20 | disposition home or self-care (01) ==
LOC: C.ER 10:42
DX: J45.901 Unspecified asthma with (acute) exacerbation (principal)
CPT/HCPCS: 71046; 80053; 85025; 93005; 94640; 96374; 99285; J2930

== ENCOUNTER 2018-06-06 01:54 | Emergency (ER) | payer SELFPAY ==
[2018-06-06 01:55] VITALS: BMI 27.9
[2018-06-06] MEDS ORDERED: Albuterol-Ipratrop 3 mg / 0.5 (3 ml) UD ONE ×2 (02:03→02:29)
[2018-06-06] MEDS ORDERED: Albuterol-Ipratrop 3 mg / 0.5 (3 ml) UD INH STA ×2 (02:07→02:31)
[2018-06-06 02:08] VITALS: RESP 20
--- NOTE | 2018-06-06 02:59 | C.PDOC ---
History Of Present Illness 27 yo female w/PMHx of asthma, no hx of resp.failure/intubation or recent ICU admission, come in for evaluation of chest tightness gradually developed for past few weeks. Pt reports, chest tightness mostly on supine position "over night". Pt use Neb tx at home without significant improvement. Pt sts, " I have never had asthma this bad as this year". Last visit to ED was 1 month ago due to same complaints. Otherwise, pt denies recent illness, fever, chills, dizziness, neck pain, CP, SOB, dyspnea, palpitation, diaphoresis, abd. pain, N/V /D, back pain, UTI sx. Ambulate to ED for evaluation, not in resp. distress. Time Seen by Provider: 06/06/18 02:11 Chief Complaint (Nursing): Respiratory Distress History Per: Patient Past Medical History Reviewed: Historical Data, Nursing Documentation, Vital Signs Vital Signs: Last Vital Signs Temp 98.2 F 06/06/18 01:59 Pulse 93 H 06/06/18 01:59 Resp 20 06/06/18 02:07 BP 121/81 06/06/18 01:59 Pulse Ox 99 06/06/18 02:07 - Medical History PMH: Asthma Denies: Depression, HTN Surgical History: - [facility] Procedures EXTRACTION OF POC, LOW CERVICAL, OPEN APPROACH (06/14/17) Family History: States: Unknown Family Hx - Social History Hx Tobacco Use: No Hx Alcohol Use: No Hx Substance Use: No - Immunization History Hx Tetanus Toxoid Vaccination: No Hx Influenza Vaccination: No Hx Pneumococcal Vaccination: No Review Of Systems Except As Marked, All Systems Reviewed And Found Negative. Constitutional: Negative for: Fever, Chills Eyes: Negative for: Vision Change ENT: Negative for: Ear Discharge, Nose Discharge, Nose Congestion, Throat Pain Cardiovascular: Negative for: Chest Pain, Palpitations, Light Headedness Respiratory: Positive for: Wheezing. Negative for: Cough, Shortness of Breath, Sputum Gastrointestinal: Negative for: Nausea, Vomiting, Abdominal Pain, Diarrhea Genitourinary: Negative for: Dysuria Musculoskeletal: Negative for: Neck Pain, Back Pain Neurological: Negative for: Weakness, Numbness, Headache, Dizziness Physical Exam - Physical Exam Appears: Well, Non-toxic, No Acute Distress Skin: Normal Color, Warm, Dry, No Rash Head: Normacephalic Eye(s): bilateral: PERRL Ear(s): Bilateral: Normal Nose: No Flaring, No Discharge Oral Mucosa: Moist Neck: Trachea Midline, Supple Cardiovascular: Rhythm Regular, No Murmur, No JVD Respiratory: No Decreased Breath Sounds, No Accessory Muscle Use, No Rales, No Rhonchi, No Stridor, Wheezing (scattered bibasilar expiratory wheezing) Gastrointestinal/Abdominal: Soft, No Tenderness Extremity: Normal ROM, No Pedal Edema, No Swelling Neurological/Psych: Oriented x3, Normal Speech ED Course And Treatment O2 Sat by Pulse Oximetry: 99 Pulse Ox Interpretation: Normal Progress Note: On re-evaluation, pt is afebrile, hemodynamicaly stable. Non- toxic. Pt reports, moderate improvement in sx. PulseOx 99%rA. PEAK pre neb tx - 260 and post neb tx- 350. Neck: Supple, (-) JVD. Lungs: CTA B/L, BS equal B/ L. CVS: (+)S1S2, reg. Abd: Benign, (-) guaridng, (-) rebound. Neurologicaly intact. Pt has clinical findings c/w asthma exacerbation. Pt advised and ref. to f/u with PMD, Pulm in 2-3 days for re-eval. return to ED if any worsening ro new changes. Disposition Counseled Patient/Family Regarding: Diagnosis, Need For Followup, Rx Given - Disposition Referrals: Liam Brannon MD [Staff Provider] - [facility] at [facility] [Outside] Disposition: HOME/ ROUTINE Disposition Time: 03:00 Condition: STABLE Additional Instructions: Take medication as prescribed Follow up with PMD, Pulmonology, Allergy in 2-3 days for re-evaluation. return to ED if any worsening or new changes. Prescriptions: Albuterol 0.083% [Albuterol 0.083% Inhal Missy (2.5 mg/3 ml) UD] 2.5 mg IH Q6 #50 neb Prednisone [Deltasone] 60 mg PO DAILY #9 tablet Instructions: Asthma in Adults - Clinical Impression Clinical Impression: Asthma
[2018-06-06 03:21] VITALS: BP 119/83; PULSE 80; TEMP 98.6; O2SAT 98
== END 2018-06-06 03:21 | disposition home or self-care (01) ==
LOC: C.ER 01:54 → SUPCPDRO 01:54 → C.ER 03:21
DX: J45.909 Unspecified asthma, uncomplicated (principal)

== ENCOUNTER 2018-09-04 19:06 | Emergency (ER) | payer SELFPAY ==
[2018-09-04 19:07] VITALS: BMI 27.9
[2018-09-04 19:26] VITALS: TEMP 98.3
[2018-09-04] MEDS ORDERED: Sodium Chloride 0.9% 1,000 ML IV ONE (19:43)
--- NOTE | 2018-09-04 19:43 | C.PDOC ---
History Of Present Illness The patient presents to the ED for evaluation of abdominal pain which began around two weeks ago and has worsened over the past 2 days. She also complains of nausea and vomiting. Patient states her last menstrual period was in . She denies fever, chills, diarrhea, back pain, urinary symptoms. Time Seen by Provider: 09/04/18 19:42 Chief Complaint (Nursing): Abdominal Pain History Per: Patient History/Exam Limitations: no limitations Onset/Duration Of Symptoms: Days (2), Other (2 weeks ) Current Symptoms Are (Timing): Worse Severity: Mild Pain Scale Rating Of: 2 Location Of Pain/Discomfort: Diffuse Quality Of Discomfort: "Pain" Associated Symptoms: Nausea, Vomiting. denies: Fever, Chills, Diarrhea, Urinary Symptoms Exacerbating Factors: None Alleviating Factors: None Last Bowel Movement: Today Recent travel outside of the [place]: No Additional History Per: Patient Abnormal Vaginal Bleeding: No Last Menstral Period: June 2018 Past Medical History Reviewed: Historical Data, Nursing Documentation, Vital Signs Vital Signs: Last Vital Signs Temp 98.3 F 09/04/18 19:19 Pulse 85 09/04/18 19:19 Resp 20 09/04/18 19:19 BP 129/93 H 09/04/18 19:19 Pulse Ox 100 09/04/18 19:19 - Medical History PMH: Asthma Denies: Depression, HTN Surgical History: - [facility] Procedures EXTRACTION OF POC, LOW CERVICAL, OPEN APPROACH (06/14/17) Family History: States: Unknown Family Hx - Social History Hx Tobacco Use: No Hx Alcohol Use: No Hx Substance Use: No - Immunization History Hx Tetanus Toxoid Vaccination: No Hx Influenza Vaccination: No Hx Pneumococcal Vaccination: No Review Of Systems Constitutional: Negative for: Fever, Chills Cardiovascular: Negative for: Chest Pain, Palpitations Respiratory: Negative for: Cough, Shortness of Breath Gastrointestinal: Positive for: Nausea, Vomiting, Abdominal Pain. Negative for: Diarrhea Genitourinary: Negative for: Dysuria, Frequency, Hematuria, Vaginal Discharge, Vaginal Bleeding Skin: Negative for: Rash, Lesions, Jaundice, Bruising Neurological: Negative for: Weakness, Numbness Physical Exam - Physical Exam Appears: Non-toxic, No Acute Distress Skin: Warm, Dry Head: Normacephalic Eye(s): bilateral: Normal Inspection Oral Mucosa: Moist Neck: Supple Chest: Symmetrical, No Deformity, No Tenderness Cardiovascular: Rhythm Regular, No Murmur Respiratory: No Rales, No Rhonchi, No Wheezing Gastrointestinal/Abdominal: Soft, No Tenderness, No Guarding, No Rebound Extremity: Normal ROM, Capillary Refill (less than 2 seconds ) Neurological/Psych: Oriented x3 ED Course And Treatment - Laboratory Results Result Diagrams: 09/04/18 20:32 09/04/18 20:32 O2 Sat by Pulse Oximetry: 100 (on RA) Pulse Ox Interpretation: Normal - CT Scan/US Pelvic US Other Rad Studies (CT/US): Read By Radiologist, Radiology Report Reviewed CT/US Interpretation: Obstetric ultrasound, first trimester. Indication : Abdominal pain. HCG 24,000. Technique: Real-time ultrasound images were obtained. Findings: Single, live intrauterine gestation. Small subchorionic hemorrhage is noted. Left ovarian corpus luteum cyst is noted measuring 1.46 cm. heart rate 111 beats per minute. The crown-rump length measures is 0.33 cm which corresponds to an estimated gestation age of 6 weeks. Normal cervical length measuring 3.3 cm. Impression: Single, live intrauterine g estation. bradycardia with a heart rate measuring 111 beats per minute. Subchorionic hemorrhage. . Electronically signed on Sep 05, 2018 12:08:36 AM EST by: Grady Linton M.D., Certified by CARLOS, MSK, Neuroradiology. Progress Note: Bloodwork and urinalysis ordered and reviewed. Zofran IVP and IV Fluids given. Reevaluation Time: 00:25 Reassessment Condition: Improved Disposition Counseled Patient/Family Regarding: Studies Performed, Diagnosis, Need For Followup - Disposition Referrals: [facility] [Outside] [facility] [Outside] Disposition: HOME/ ROUTINE Disposition Time: 19:42 Condition: FAIR Additional Instructions: Please return if symptoms recur Instructions: - The Second Month Forms: [facility] (Arabic) - Clinical Impression Clinical Impression: , Subchorionic hemorrhage - Scribe Statement The provider has reviewed the documentation as recorded by the Scribe (Sara Booker) Provider Attestation: All medical record entries made by the Scribe were at my direction and personally dictated by me. I have reviewed the chart and agree that the record accurately reflects my personal performance of the history, physical exam, medical decision making, and the department course for this patient. I have also personally directed, reviewed, and agree with the discharge instructions and disposition.
[2018-09-04 20:36] LABS: BASO # 0.1 K/uL (0.0-0.2); EOS % 0.9 % (0.0-4.0); HEMOGLOBIN 14.1 g/dL (11.0-16.0); LYMPH # 1.4 K/uL (1.0-4.3); LYMPH % 25.6 % (20.0-40.0); MEAN CELL VOLUME 85.9 fL (81.0-99.0); MEAN CORPUSCULAR HEMOGLOBIN 29.4 pg (27.0-31.0); MEAN CORPUSCULAR HGB CONC 34.3 g/dL (33.0-37.0); MONO # 0.4 K/uL (0.0-0.8); MONO % 8.1 % (0.0-10.0); NEUT # 3.5 K/uL (1.8-7.0); NEUT % 64.4 % (50.0-75.0); RBC 4.79 Mil/uL (3.80-5.20); WHITE BLOOD COUNT 5.4 K/uL (4.8-10.8)
[2018-09-04 20:49] LABS: INR 1.1; PROTHROMBIN TIME 12.1 SECONDS (9.7-12.2)
[2018-09-04 20:59] LABS: SQUAMOUS EPITHIAL 6 /hpf (0-5); URINE BILIRUBIN NEGATIVE (NEGATIVE); URINE BLOOD NEGATIVE (NEGATIVE); URINE CLARITY Hazy (Clear); URINE COLOR Yellow (YELLOW); URINE GLUCOSE (UA) NORMAL (Normal); URINE LEUKOCYTE ESTERASE NEG Leu/uL (Negative); URINE PROTEIN NEGATIVE (NEGATIVE)
[2018-09-04 21:13] LABS: ALT/SGPT 39 U/L (9-52); AST/SGOT 24 U/L (14-36); BLOOD UREA NITROGEN 17 mg/dL (7-17); GFR NON-AFRICAN AMERICAN > 60
[2018-09-04 21:18] LABS: ALBUMIN 4.9 g/dL (3.5-5.0); CALCIUM 9.7 mg/dl (8.6-10.4)
[2018-09-04 21:57] LABS: ALB/GLOB RATIO 1.4 (1.0-2.1)
[2018-09-05 00:40] VITALS: BP 120/74; PULSE 75; RESP 18; O2SAT 99
--- NOTE | 2018-09-05 11:54 | US ---
Date of service: 09/04/2018 PROCEDURE: OB Pelvic Ultrasound HISTORY: abd pain, hcg [id number] LMP: 06/21/2018 COMPARISON: None available. FINDINGS: UTERUS: Gestational sac: 14 mm equal to 5 weeks 4 days gestational age [place]-rump length 3 mm equal to 6 weeks 0 days Heart rate: 111 bpm. age (Ultrasound estimated): 5 weeks 6 days [place]-gestational hemorrhage: Small perigestational hemorrhage, 4 x 5 x 7 mm Date of delivery (Ultrasound estimated) : 05/01/2019 Uterus measures 10.2 x 4.9 x 6.8 cm. Normal in size and appearance. CERVIX: Measures 3.4 cm. Long and closed. No cervical abnormality seen. RIGHT OVARY: Measures 2.5 x 1.6 x 3.0 cm. No mass lesion. Normal flow. LEFT OVARY: Measures 3.4 x 2.3 x 3.0 cm. No solid mass. Normal flow. Cyst, possibly corpus luteum, 1.3 x 1.3 x 1.4 cm FREE FLUID: None. OTHER FINDINGS: None. IMPRESSION: Single live intrauterine gestation of approximately 5 weeks 6 days gestational age. Small perigestational hemorrhage. Cervix long and closed. No additional abnormality.
== END 2018-09-05 00:40 | disposition home or self-care (01) ==
LOC: C.ER 19:06
DX: O20.9 Hemorrhage in early pregnancy, unspecified (principal); Z3A.01 Less than 8 weeks gestation of pregnancy
CPT/HCPCS: 76805; 76817; 80053; 81001; 84702; 85025; 85610; 85730; 86850; 86900; 96374; 99284; J2405; J7030

== ENCOUNTER 2018-11-17 04:31 | Emergency (ER) | payer MEDICAID ==
[2018-11-17 04:32] VITALS: BMI 27.9
[2018-11-17] MEDS ORDERED: Albuterol-Ipratrop 3 mg / 0.5 (3 ml) UD ONE (04:57)
[2018-11-17] MEDS ORDERED: Albuterol-Ipratrop 3 mg / 0.5 (3 ml) UD INH STA ×2 (05:11)
--- NOTE | 2018-11-17 05:12 | C.PDOC ---
History Of Present Illness 28 year old female, whose past medical history includes asthma, presents to the ED for evaluation of shortness of breath which began prior to arrival. Patient is currently around 19 weeks . She denies abdominal pain at this time. Patient is . Chief Complaint (Nursing): Shortness Of Breath History Per: Patient History/Exam Limitations: no limitations Onset/Duration Of Symptoms: Hrs Current Symptoms Are (Timing): Still Present Past Medical History Reviewed: Historical Data, Nursing Documentation, Vital Signs Vital Signs: Last Vital Signs Temp 98.2 F 11/17/18 04:35 Pulse 120 H 11/17/18 04:35 Resp 22 11/17/18 04:44 BP 122/80 11/17/18 04:35 Pulse Ox 96 11/17/18 04:35 - Medical History PMH: Asthma Denies: Depression, HTN Surgical History: - [facility] Procedures EXTRACTION OF POC, LOW CERVICAL, OPEN APPROACH (06/14/17) Family History: States: Unknown Family Hx - Social History Hx Tobacco Use: No Hx Alcohol Use: No Hx Substance Use: No - Immunization History Hx Tetanus Toxoid Vaccination: No Hx Influenza Vaccination: No Hx Pneumococcal Vaccination: No Review Of Systems Respiratory: Positive for: Shortness of Breath Gastrointestinal: Negative for: Abdominal Pain Physical Exam - Physical Exam Appears: Non-toxic, Other (in mild respiratory distress ) Skin: Normal Color, Warm, Dry Head: Atraumatic, Normacephalic Eye(s): bilateral: Normal Inspection Oral Mucosa: Moist Neck: Supple Chest: Symmetrical, No Deformity, No Tenderness Cardiovascular: Rhythm Regular, Murmur Respiratory: No Rales, Rhonchi (occasional ), Wheezing (occasional ) Extremity: Normal ROM, Capillary Refill (less than 2 seconds ) Neurological/Psych: Oriented x3, Normal Speech, Normal Cognition ED Course And Treatment O2 Sat by Pulse Oximetry: 96 Progress Note: Albuterol INH given. Disposition - Disposition Referrals: [facility] at [facility] [Outside] Disposition: HOME/ ROUTINE Disposition Time: 05:12 Condition: IMPROVED Prescriptions: Albuterol/Ipratropium [Duoneb 3 MG/3 Ml-0.5 MG/3 Ml 3 Ml] 3 ml IH Q6 #20 neb Instructions: Asthma and Forms: [facility] (German) - POA Present On Arrival: None - Clinical Impression Clinical Impression: , Asthma - Scribe Statement The provider has reviewed the documentation as recorded by the Scribe (Sara Booker) Provider Attestation: All medical record entries made by the Scribe were at my direction and personally dictated by me. I have reviewed the chart and agree that the record accurately reflects my personal performance of the history, physical exam, medical decision making, and the department course for this patient. I have also personally directed, reviewed, and agree with the discharge instructions and disposition.
--- NOTE | 2018-11-17 05:13 | C.PDOC ---
Chief Complaint (Nursing): Shortness Of Breath Past Medical History Vital Signs: Last Vital Signs Temp 98.2 F 11/17/18 04:35 Pulse 120 H 11/17/18 04:35 Resp 22 11/17/18 04:44 BP 122/80 11/17/18 04:35 Pulse Ox 96 11/17/18 04:35 - Medical History PMH: Asthma Denies: Depression, HTN Surgical History: - [facility] Procedures EXTRACTION OF POC, LOW CERVICAL, OPEN APPROACH (06/14/17) Family History: States: Unknown Family Hx - Social History Hx Tobacco Use: No Hx Alcohol Use: No Hx Substance Use: No - Immunization History Hx Tetanus Toxoid Vaccination: No Hx Influenza Vaccination: No Hx Pneumococcal Vaccination: No ED Course And Treatment O2 Sat by Pulse Oximetry: 96 Disposition Counseled Patient/Family Regarding: Diagnosis - Disposition Referrals: [facility] at [facility] [Outside] Disposition: HOME/ ROUTINE Disposition Time: 05:12 Condition: IMPROVED Prescriptions: Albuterol/Ipratropium [Duoneb 3 MG/3 Ml-0.5 MG/3 Ml 3 Ml] 3 ml IH Q6 #20 neb
[2018-11-17 05:32] VITALS: RESP 20
[2018-11-17 05:53] VITALS: BP 128/76; PULSE 88; TEMP 97.4
[2018-11-17 06:43] VITALS: O2SAT 96
== END 2018-11-17 05:53 | disposition home or self-care (01) ==
LOC: C.ER 04:31
DX: O99.512 Diseases of the respiratory system complicating pregnancy, second trimester (principal); J45.909 Unspecified asthma, uncomplicated; Z3A.19 19 weeks gestation of pregnancy

== ENCOUNTER 2018-11-23 04:47 | Emergency (ER) | payer MEDICAID ==
[2018-11-23 04:48] VITALS: BMI 27.9
[2018-11-23 05:00] VITALS: BP 116/81; TEMP 98.3
[2018-11-23] MEDS ORDERED: Albuterol 0.083% Inhal Sol (2.5 mg/3 mL) UD ONE (05:44)
[2018-11-23] MEDS ORDERED: Albuterol-Ipratrop 3 mg / 0.5 (3 ml) UD IH STA (05:47)
[2018-11-23] MEDS ORDERED: Albuterol-Ipratrop 3 mg / 0.5 (3 ml) UD ONE (05:55)
[2018-11-23 06:14] VITALS: PULSE 110; RESP 18; O2SAT 100
--- NOTE | 2018-11-23 06:39 | C.PDOC ---
Time Seen by Provider: 11/23/18 05:30 Chief Complaint (Nursing): Shortness Of Breath Past Medical History Vital Signs: Last Vital Signs Temp 98.3 F 11/23/18 04:53 Pulse 110 H 11/23/18 06:14 Resp 18 11/23/18 06:14 BP 116/81 11/23/18 04:53 Pulse Ox 100 11/23/18 06:14 - Medical History PMH: Asthma Denies: Depression, HTN Surgical History: - [facility] Procedures EXTRACTION OF POC, LOW CERVICAL, OPEN APPROACH (06/14/17) Family History: States: Unknown Family Hx - Social History Hx Tobacco Use: No Hx Alcohol Use: No Hx Substance Use: No - Immunization History Hx Tetanus Toxoid Vaccination: No Hx Influenza Vaccination: No Hx Pneumococcal Vaccination: No ED Course And Treatment O2 Sat by Pulse Oximetry: 100 Disposition - Disposition Referrals: [facility] [Outside] [facility] [Outside] Disposition: HOME/ ROUTINE Disposition Time: 06:36 Condition: IMPROVED Additional Instructions: Follow up with PMD and OBGYN within 2-3 days. Return to ED immediately if feel worse. Prescriptions: Albuterol 0.083% [Albuterol Sulfate 3 Ml] 3 ml IH .Q4-6H #100 vial predniSONE [predniSONE Tab] 2 tab PO DAILY #8 tab Albuterol HFA [Ventolin HFA 90 mcg/actuation (8 g)] 1 puff IH .Q4-6H #1 inhaler Azithromycin [Zithromax] 250 mg PO DAILY #4 tab Instructions: Asthma and Forms: [facility] (Luxembourgish) - Clinical Impression Clinical Impression: , Asthma with bronchitis
--- NOTE | 2018-11-23 06:40 | C.PDOC ---
History Of Present Illness 28 year old female, 21 weeks , presents to the emergency department with complaints of cold symptoms and asthma exacerbation. Patient was seen here last week and given Duoneb, and went home upon feeling better. Patient states that she did not get steroids at the time. Today, patient states that she feels as if she is beginning to get cold symptoms, particularly runny nose and congestion. Patient reports that she was sleeping and had asthma exacerbation with wheezing and shortness of breath. Patient states that she called and ambulance and she was given 2 Duoneb en route. Time Seen by Provider: 11/23/18 05:30 Chief Complaint (Nursing): Shortness Of Breath History Per: Patient, EMS History/Exam Limitations: no limitations Onset/Duration Of Symptoms: Hrs Current Symptoms Are (Timing): Still Present Current Respiratory Medications: Albuterol Associated Symptoms: Other (shortness of breath, wheezing, runny nose, con gestion) Past Medical History Reviewed: Historical Data, Nursing Documentation, Vital Signs Vital Signs: Last Vital Signs Temp 98.3 F 11/23/18 04:53 Pulse 110 H 11/23/18 06:14 Resp 18 11/23/18 06:14 BP 116/81 11/23/18 04:53 Pulse Ox 100 11/23/18 06:14 - Medical History PMH: Asthma Denies: Depression, HTN Surgical History: - [facility] Procedures EXTRACTION OF POC, LOW CERVICAL, OPEN APPROACH (06/14/17) Family History: States: No Known Family Hx - Social History Hx Tobacco Use: No Hx Alcohol Use: No Hx Substance Use: No - Immunization History Hx Tetanus Toxoid Vaccination: No Hx Influenza Vaccination: No Hx Pneumococcal Vaccination: No Review Of Systems Except As Marked, All Systems Reviewed And Found Negative. Constitutional: Negative for: Fever, Chills ENT: Positive for: Nose Discharge, Nose Congestion Respiratory: Positive for: Shortness of Breath, Wheezing Gastrointestinal: Negative for: Nausea, Vomiting, Abdominal Pain, Diarrhea Physical Exam - Physical Exam Appears: Non-toxic, No Acute Distress Skin: Warm, Dry Head: Atraumatic, Normacephalic Eye(s): bilateral: Normal Inspection, PERRL, EOMI Oral Mucosa: Moist Neck: Normal, Supple Chest: Symmetrical, No Tenderness Cardiovascular: Rhythm Regular, No Murmur Respiratory: No Rales, No Rhonchi, Wheezing (mild, diffuse expiratory wheezing) Gastrointestinal/Abdominal: Soft, No Tenderness Neurological/Psych: Oriented x3, Normal Speech, Normal Cognition ED Course And Treatment O2 Sat by Pulse Oximetry: 100 (RA) Pulse Ox Interpretation: Normal Progress Note: Plan: Duoneb 3ml. Zithromax 500mg PO. Prednisone 60mg PO. On re-evaluation patient feels better and is stable to be d/c home with PMD follow up. Disposition - Disposition Referrals: [facility] [Outside] [facility] [Outside] Disposition: HOME/ ROUTINE Disposition Time: 06:49 Condition: IMPROVED Additional Instructions: Follow up with PMD and OBGYN within 2-3 days. Return to ED immediately if feel worse. Prescriptions: Albuterol 0.083% [Albuterol Sulfate 3 Ml] 3 ml IH .Q4-6H #100 vial predniSONE [predniSONE Tab] 2 tab PO DAILY #8 tab Albuterol HFA [Ventolin HFA 90 mcg/actuation (8 g)] 1 puff IH .Q4-6H #1 inhaler Azithromycin [Zithromax] 250 mg PO DAILY #4 tab Instructions: Asthma and Forms: [employer] (Yoruba) - Clinical Impression Clinical Impression: , Asthma with bronchitis - PA / APPLICATION SECURITY ARCHITECT / Resident Statement MD/DO has reviewed & agrees with the documentation as recorded. - Scribe Statement The provider has reviewed the documentation as recorded by the Scribe All medical record entries made by the Scribe were at my direction and personally dictated by me. I have reviewed the chart and agree that the record accurately reflects my personal performance of the history, physical exam, medical decision making, and the department course for this patient. I have also personally directed, reviewed, and agree with the discharge instructions and disposition.
== END 2018-11-23 06:53 | disposition home or self-care (01) ==
LOC: C.ER 04:47
DX: O26.892 Other specified pregnancy related conditions, second trimester (principal); J45.909 Unspecified asthma, uncomplicated; Z3A.21 21 weeks gestation of pregnancy

== ENCOUNTER 2018-12-08 17:50 | Emergency (ER) | payer MEDICAID, OTHER ==
[2018-12-08 17:51] VITALS: BMI 27.9
[2018-12-08 18:20] VITALS: BP 111/81; PULSE 113; RESP 18; TEMP 98.7; O2SAT 99
--- NOTE | 2018-12-08 18:43 | C.PDOC ---
History Of Present Illness 28 year old female presents to ED following an asthma attack. Patient was at her mother in laws house and her mother in law was smoking. Patient reports that she had an asthma attack. Patient has a PMHx of asthma and is 22 weeks . She used her machine at home and felt better, but still thought she should go to the ED. Patient states that while she was waiting to be seen she starting to feel better and has no physical complaints now. Time Seen by Provider: 12/08/18 18:20 Chief Complaint (Nursing): Shortness Of Breath History Per: Patient History/Exam Limitations: no limitations Onset/Duration Of Symptoms: Hrs Current Symptoms Are (Timing): Better Initiating Event: Exposure To Smoke Associated Symptoms: denies: Fever, Chills, Chest Pain, Productive Cough Past Medical History Reviewed: Historical Data, Nursing Documentation, Vital Signs Vital Signs: Last Vital Signs Temp 98.7 F 12/08/18 18:17 Pulse 113 H 12/08/18 18:17 Resp 18 12/08/18 18:20 BP 111/81 12/08/18 18:17 Pulse Ox 99 12/08/18 18:20 - Medical History PMH: Asthma Denies: Depression, HTN Surgical History: - [facility] Procedures EXTRACTION OF POC, LOW CERVICAL, OPEN APPROACH (06/14/17) Family History: States: Unknown Family Hx - Social History Hx Tobacco Use: No Hx Alcohol Use: No Hx Substance Use: No - Immunization History Hx Tetanus Toxoid Vaccination: No Hx Influenza Vaccination: No Hx Pneumococcal Vaccination: No Review Of Systems Constitutional: Negative for: Fever, Chills, Weakness Cardiovascular: Negative for: Chest Pain, Palpitations Respiratory: Negative for: Cough, Shortness of Breath Neurological: Negative for: Weakness, Numbness, Dizziness Physical Exam - Physical Exam Appears: Well, Non-toxic, No Acute Distress Skin: Normal Color, Warm, Dry Head: Atraumatic, Tenderness Neck: Normal ROM, Supple Chest: Symmetrical, No Deformity Cardiovascular: Rhythm Regular, No Murmur Respiratory: No Accessory Muscle Use, No Rales, No Rhonchi, No Wheezing Extremity: Capillary Refill (<2 seconds) Neurological/Psych: Oriented x3, Normal Speech, Normal Cognition ED Course And Treatment O2 Sat by Pulse Oximetry: 99 (in RA) Progress Note: Patient offered nebulizer. Patient declined. Patient states she felt better and wished to go home. Patient was discharged. Patient feels better. Discussed plan with patient who expresses understanding. All questions answered and there is agreement with the plan to discharge home with instructions. Patient stable for discharge. Return if symptoms persist or worsen. Disposition - Disposition Disposition: HOME/ ROUTINE Disposition Time: 18:39 Condition: STABLE Additional Instructions: Follow up with PMD within 1-2 days. Return to ED immediately if feel worse. 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 (Nuria Burton) - Scribe Statement The provider has reviewed the documentation as recorded by the Scribe (Nuria Burton) All medical record entries made by the Scribe were at my direction and personally dictated by me. I have reviewed the chart and agree that the record accurately reflects my personal performance of the history, physical exam, medical decision making, and the department course for this patient. I have also personally directed, reviewed, and agree with the discharge instructions and disposition.
== END 2018-12-08 18:48 | disposition home or self-care (01) ==
LOC: C.ER 17:50
DX: O99.512 Diseases of the respiratory system complicating pregnancy, second trimester (principal); J45.901 Unspecified asthma with (acute) exacerbation; Z3A.22 22 weeks gestation of pregnancy

== ENCOUNTER 2018-12-08 23:22 | Emergency (ER) | payer OTHER ==
[2018-12-08 23:22] VITALS: BMI 27.9
[2018-12-08] MEDS ORDERED: Albuterol-Ipratrop 3 mg / 0.5 (3 ml) UD INH STA ×2 (23:45→23:57)
[2018-12-08] MEDS ORDERED: Albuterol-Ipratrop 3 mg / 0.5 (3 ml) UD ONE (23:54)
--- NOTE | 2018-12-09 00:12 | C.PDOC ---
History Of Present Illness 28 year old female , , 22 weeks gestation presents to the ED c/o wheezing and SOB. Patient was seen earlier today in the ED for same, was discharged home after she reported feeling better. Patient now also states that while at home, she was bending down in her bathroom to place new toilet paper and when she stood up she had a syncopal episode. Patient injured her right flank. Patient denies fever, chills, headache, visual changes, neck pain, rash, CP, palpitations, vaginal bleeding, weakness, numbness. Time Seen by Provider: 12/09/18 00:11 Chief Complaint (Nursing): Shortness Of Breath History Per: Patient History/Exam Limitations: no limitations Onset/Duration Of Symptoms: Hrs Current Symptoms Are (Timing): Still Present Initiating Event: Upper Respiratory Illness Quality: "Pain" Reports Recently: Seen In ED (12/08/2018) Recent travel outside of the [place]: No Additional History Per: Patient Past Medical History Reviewed: Historical Data, Nursing Documentation, Vital Signs Vital Signs: Last Vital Signs Temp 97.8 F 12/08/18 23:40 Pulse 117 H 12/08/18 23:40 Resp 28 H 12/08/18 23:40 BP 118/69 12/08/18 23:40 Pulse Ox 100 12/08/18 23:40 - Medical History PMH: Asthma Denies: Depression, HTN Surgical History: - [facility] Procedures EXTRACTION OF POC, LOW CERVICAL, OPEN APPROACH (06/14/17) Family History: States: No Known Family Hx - Social History Hx Tobacco Use: No Hx Alcohol Use: No Hx Substance Use: No - Immunization History Hx Tetanus Toxoid Vaccination: No Hx Influenza Vaccination: No Hx Pneumococcal Vaccination: No Review Of Systems Constitutional: Negative for: Fever, Chills Eyes: Negative for: Vision Change Cardiovascular: Negative for: Chest Pain, Palpitations Respiratory: Positive for: Shortness of Breath Gastrointestinal: Positive for: Abdominal Pain. Negative for: Nausea, Vomiting Genitourinary: Negative for: Dysuria, Hematuria, Vaginal Discharge, Vaginal Bleeding Musculoskeletal: Negative for: Back Pain Skin: Negative for: Rash Neurological: Negative for: Weakness, Numbness Physical Exam - Physical Exam Appears: Non-toxic, No Acute Distress Skin: Warm, Dry Head: Normacephalic Eye(s): bilateral: Normal Inspection, PERRL, EOMI Neck: No Midline Cervical Tenderness, Supple Chest: Symmetrical Cardiovascular: Rhythm Regular (tachycardic) Respiratory: No Rales, No Rhonchi, No Wheezing Gastrointestinal/Abdominal: Soft, No Tenderness, No Guarding, No Rebound, Other (gravid, 4x2 cm area of erythema on the right flank) Extremity: Bilateral: Atraumatic, Normal Color And Temperature, Normal ROM Neurological/Psych: Oriented x3, Normal Speech, Normal Cognition Gait: Steady ED Course And Treatment - Laboratory Results Result Diagrams: 12/09/18 01:08 12/09/18 01:08 ECG: Interpreted By Me, Viewed By Me ECG Rhythm: Sinus Tachycardia (123), Nonspecific Changes O2 Sat by Pulse Oximetry: 100 (On RA) Pulse Ox Interpretation: Normal - CT Scan/US Pelvic US Other Rad Studies (CT/US): Read By Radiologist, Radiology Report Reviewed CT/US Interpretation: Ultrasound of , limited. Indication: Trauma. Comparison: 09/04/2018. Findings: Real-time ultrasound images were obtained. Normal cervical length measuring 3.5 cm. The cervix. Posterior low lying placenta. The distance between the placental edge and the cervix is 1.8 cm. Transverse presentation. heart rate 154 beats per minute. Estimated gestational age 20 weeks and 5 days. No free fluid is noted in the pelvic cul-de-sac. Impression: Single, live intrauterine gestation. No acute abnormality is seen. . Electronically signed on Dec 09, 2018 3:24:02 AM EST by: Grady Linton M.D., Certified by ABR, MSK, Neuroradiology. Progress Note: Plan: - EKG. - Labs. - Duoneb. - Solumedrol 125 mg IVP. - IV fluids. - UA. - Pelvic US Reevaluation Time: 03:32 Reassessment Condition: Improved Disposition Counseled Patient/Family Regarding: Studies Performed, Diagnosis, Need For Followup - Disposition Disposition: HOME/ ROUTINE Disposition Time: 00:12 Condition: FAIR Additional Instructions: Please return if symptoms recur Prescriptions: Albuterol/Ipratropium [Duoneb 3 MG/3 Ml-0.5 MG/3 Ml 3 Ml] 1 ea IH QID PRN #50 neb PRN Reason: Wheezing Prednisone [Deltasone] 20 mg PO DAILY #5 tablet Instructions: Asthma, Adult (DC) Forms: [facility] (Icelandic) - Clinical Impression Clinical Impression: Asthma exacerbation - Scribe Statement The provider has reviewed the documentation as recorded by the Scribe [place] All medical record entries made by the Scribe were at my direction and personally dictated by me. I have reviewed the chart and agree that the record accurately reflects my personal performance of the history, physical exam, medical decision making, and the department course for this patient. I have also personally directed, reviewed, and agree with the discharge instructions and disposition.
[2018-12-09] MEDS ORDERED: Sodium Chloride 0.9% 1,000 ML IV ONE (00:26)
[2018-12-09 00:52] LABS: SQUAMOUS EPITHIAL 50 /hpf (0-5); URINE BACTERIA RARE (<OCC); URINE HYALINE CAST 0-2 /lpf (0-2)
[2018-12-09 00:57] LABS: URINE CLARITY Hazy (Clear); URINE COLOR YELLOW (YELLOW); URINE GLUCOSE (UA) NEGATIVE (Normal)
[2018-12-09 00:58] LABS: URINE BILIRUBIN NEGATIVE (NEGATIVE); URINE BLOOD NEGATIVE (NEGATIVE); URINE LEUKOCYTE ESTERASE NEGATIVE Leu/uL (Negative); URINE PROTEIN NEGATIVE (NEGATIVE); URINE UROBILINOGEN 0.2 mg/dL (0.2-1.0)
[2018-12-09 01:17] LABS: BASO % 0.2 % (0.0-2.0); EOS # 0.1 K/uL (0.0-0.7); EOS % 0.9 % (0.0-4.0); HEMOGLOBIN 12.1 g/dL (11.0-16.0); LYMPH # 0.9 K/uL (1.0-4.3); LYMPH % 6.7 % (20.0-40.0); MEAN CELL VOLUME 90.9 fL (81.0-99.0); MEAN CORPUSCULAR HEMOGLOBIN 30.5 pg (27.0-31.0); MEAN CORPUSCULAR HGB CONC 33.6 g/dL (33.0-37.0); MEAN PLATELET VOLUME 9.3 fL (7.2-11.7); MONO # 0.3 K/uL (0.0-0.8); NEUT # 12.7 K/uL (1.8-7.0); NEUT % 90.2 % (50.0-75.0); PLATELET COUNT 209 K/uL (130-400); RBC 3.96 Mil/uL (3.80-5.20); RED CELL DISTRIBUTION WIDTH 13.9 % (11.5-14.5); WHITE BLOOD COUNT 14.1 K/uL (4.8-10.8)
[2018-12-09 01:24] LABS: ALB/GLOB RATIO 1.5 (1.0-2.1); ALBUMIN 4.2 g/dL (3.5-5.0); ALT/SGPT 12 U/L (9-52); AST/SGOT 13 U/L (14-36); BLOOD UREA NITROGEN 13 mg/dL (7-17); CALCIUM 9.5 mg/dl (8.6-10.4); GFR NON-AFRICAN AMERICAN > 60
[2018-12-09 03:08] LABS: EOSINOPHIL 1 % (0-4); LYMPHOCYTE 4 % (20-40); MONOCYTE 1 % (0-10); NEUTROPHIL 94 % (50-75); PLATELET ESTIMATE NORMAL (NORMAL); TOTAL CELLS COUNTED 100
[2018-12-09 03:25] VITALS: O2SAT 100
[2018-12-09 04:04] VITALS: BP 113/65; PULSE 118; RESP 16; TEMP 98.5
--- NOTE | 2018-12-09 12:29 | US ---
Indication: trauma Comparison: First-trimester Ob ultrasound performed 09/04/18 Technique: Real-time ultrasound was performed through the pelvis. Findings: There is a single living fetus in transverse presentation. The placenta appears low lying terminating approximately 1.8 cm from the os. There are no adnexal masses or cysts evident. Cervix length measures approximately 3.5 cm. Measurements and calculations: Fetus has a composite sonographic age of 20 weeks 5 days. This calculation is based on the biparietal diameter, head circumference, abdominal circumference, and femur length. Estimated heart rate 154.4 beats per min. Estimated weight 392.8 g. Impression: Single living fetus with a composite sonographic age of 20 weeks 5 days. Estimated heart rate 154.4 beats per min. The placenta appears low lying measuring approximately 1.8 cm away from the cervical os. Preliminary impression was provided by JOSE Harrison.
--- NOTE | 2018-12-11 21:56 | CARD ---
APPROVED REPORT Date of service: 12/09/2018 EKG Measurement Heart [id number] <Conclusion> Sinus tachycardia Otherwise normal ECG
== END 2018-12-09 04:04 | disposition home or self-care (01) ==
LOC: C.ER 23:22
DX: O99.512 Diseases of the respiratory system complicating pregnancy, second trimester (principal); J45.901 Unspecified asthma with (acute) exacerbation; Z3A.22 22 weeks gestation of pregnancy
CPT/HCPCS: 76815; 80053; 81001; 85025; 93005; 96361; 96374; 99284; J2930; J7030

== ENCOUNTER 2019-01-15 08:13 | Emergency (ER) | payer OTHER ==
[2019-01-15 08:13] VITALS: BMI 27.9
[2019-01-15] MEDS ORDERED: Albuterol-Ipratrop 3 mg / 0.5 (3 ml) UD INH STA ×2 (08:25)
[2019-01-15] MEDS ORDERED: MethylPREDNISolone 40 mg Vial IVP STA (08:25)
[2019-01-15] MEDS ORDERED: Magnesium Sulfate 1 gm in D5W 2 GM/200 ML BAG IVPB ONE (08:36)
[2019-01-15] MEDS: Magnesium Sulfate 1 gm in D5W 1 GM/100 ML BAG IVPB SCH ×2 (08:36→09:03)
[2019-01-15] MEDS ORDERED: Albuterol-Ipratrop 3 mg / 0.5 (3 ml) UD ONE (08:38)
[2019-01-15 09:33] VITALS: TEMP 98; O2SAT 96
[2019-01-15 10:01] LABS: BASO % 0.2 % (0.0-2.0); EOS # 0.2 K/uL (0.0-0.7); EOS % 1.8 % (0.0-4.0); HEMOGLOBIN 11.8 g/dL (11.0-16.0); LYMPH # 1.1 K/uL (1.0-4.3); LYMPH % 10.8 % (20.0-40.0); MEAN CELL VOLUME 89.6 fL (81.0-99.0); MEAN CORPUSCULAR HGB CONC 34.6 g/dL (33.0-37.0); MEAN PLATELET VOLUME 9.1 fL (7.2-11.7); MONO # 0.3 K/uL (0.0-0.8); MONO % 2.6 % (0.0-10.0); NEUT # 8.5 K/uL (1.8-7.0); NEUT % 84.6 % (50.0-75.0); RBC 3.82 Mil/uL (3.80-5.20); RED CELL DISTRIBUTION WIDTH 13.6 % (11.5-14.5)
[2019-01-15 10:17] LABS: ALB/GLOB RATIO 1.5 (1.0-2.1); ALBUMIN 3.7 g/dL (3.5-5.0); AST/SGOT 23 U/L (14-36); BLOOD UREA NITROGEN 7 mg/dL (7-17); CALCIUM 8.4 mg/dl (8.6-10.4); GFR NON-AFRICAN AMERICAN > 60
[2019-01-15 10:18] LABS: ALT/SGPT < 6 U/L (9-52)
[2019-01-15 11:09] VITALS: BP 109/74; PULSE 99; RESP 20
--- NOTE | 2019-01-15 12:50 | C.PDOC ---
History Of Present Illness 28 year old female presents to ED with complaint of typical asthma symptoms starting earlier today. Patient states that earlier today she took 1 asthma treatment at home with minimal relief. Patient came for further evaluation. Patient also complains of dry cough. Patient is currently 7 months . Patient denies fever, chest pain, vaginal bleeding, vaginal discharge. Chief Complaint (Nursing): Shortness Of Breath History Per: Patient History/Exam Limitations: no limitations Onset/Duration Of Symptoms: Days (1) Current Symptoms Are (Timing): Still Present Current Respiratory Medications: Albuterol Associated Symptoms: denies: Fever, Chest Pain Past Medical History Reviewed: Historical Data, Nursing Documentation, Vital Signs Vital Signs: Last Vital Signs Temp 98 F 01/15/19 11:04 Pulse 99 H 01/15/19 11:04 Resp 20 01/15/19 11:04 BP 109/74 01/15/19 11:04 Pulse Ox 96 01/15/19 11:04 - Medical History PMH: Asthma Denies: Depression, HTN Surgical History: - [facility] Procedures EXTRACTION OF POC, LOW CERVICAL, OPEN APPROACH (06/14/17) Family History: States: Unknown Family Hx - Social History Hx Tobacco Use: No Hx Alcohol Use: No Hx Substance Use: No - Immunization History Hx Tetanus Toxoid Vaccination: No Hx Influenza Vaccination: No Hx Pneumococcal Vaccination: No Review Of Systems Constitutional: Negative for: Fever, Chills Cardiovascular: Negative for: Chest Pain Respiratory: Positive for: Cough, Shortness of Breath, Wheezing. Negative for: Sputum Genitourinary: Positive for: Other (quickening). Negative for: Vaginal Discharge, Vaginal Bleeding Physical Exam - Physical Exam Appears: Non-toxic, No Acute Distress Skin: Normal Color, Warm, Dry Head: Atraumatic, Normacephalic Neck: Normal ROM, Supple Chest: Symmetrical, No Deformity Cardiovascular: Rhythm Regular, No Murmur Respiratory: No Accessory Muscle Use, No Rales, No Rhonchi, Wheezing (bilateral expiratory wheezing) Gastrointestinal/Abdominal: Soft, No Tenderness Pelvic: Other (gravid uterus) Neurological/Psych: Oriented x3, Normal Speech, Normal Cognition ED Course And Treatment - Laboratory Results Result Diagrams: 01/15/19 09:57 01/15/19 09:57 Lab Results: Total Bilirubin 0.4 mg/dL (0.2-1.3) 01/15/19 09:57 AST 23 U/L (14-36) 01/15/19 09:57 ALT < 6 U/L (9-52) L D 01/15/19 09:57 Alkaline Phosphatase 87 U/L (38-126) 01/15/19 09:57 Total Protein 6.2 g/dL (6.3-8.3) L 01/15/19 09:57 Albumin 3.7 g/dL (3.5-5.0) 01/15/19 09:57 Globulin 2.5 gm/dL (2.2-3.9) 01/15/19 09:57 Albumin/Globulin Ratio 1.5 (1.0-2.1) 01/15/19 09:57 O2 Sat by Pulse Oximetry: 96 (in RA) Medical Decision Making Medical Decision Making: Impression: 28 year old female presents to ED with complaint of typical asthma symptoms. Plan: Labs ordered with CMP and CBC Patient given Duoneb, Magnesium Sulfate, and Solu-medrol Re-eval: After treatments, patient is no longer wheezing. Lungs are clear. Patient denies SOB. Disposition - Disposition Referrals: [facility] Antonio Hernandez, [Non-Staff] - Disposition: HOME/ ROUTINE Disposition Time: 10:30 Condition: IMPROVED Additional Instructions: JARVIS BANEGAS, thank you for letting us take care of you today. The emergency medical care you received today was directed at your acute symptoms. If you were prescribed any medication, please fill it and take as directed. It may take several days for your symptoms to resolve. Return to the Emergency Department if your symptoms worsen, do not improve, or if you have any other problems. Please contact your doctor or call one of the physicians/clinics you have been referred to that are listed on the Patient Visit Information form that is included in your discharge packet. Bring any paperwork you were given at discharge with you along with any medications you are taking to your follow up visit. Our treatment cannot replace ongoing medical care by a primary care provider outside of the emergency department. Thank you for allowing the [facility] team to be part of your care today. Follow up with your BUSINESS TRAVEL CONSULTANT doctor in 3-4 days for re-evaluation and further management. Follow up with the pulmonary doctor that you were referred to in 2-3 days. Prescriptions: Albuterol Sulfate [Ventolin Hfa] 2 puff IH Q4 PRN #1 unit PRN Reason: wheeze predniSONE [Prednisone] 40 mg PO DAILY #10 tab Instructions: Asthma and Forms: [facility] (Niuean) - Clinical Impression Clinical Impression: , Asthma - Scribe Statement The provider has reviewed the documentation as recorded by the Scribe (Nuria Burton) All medical record entries made by the Scribe were at my direction and personally dictated by me. I have reviewed the chart and agree that the record accurately reflects my personal performance of the history, physical exam, medical decision making, and the department course for this patient. I have also personally directed, reviewed, and agree with the discharge instructions and disposition.
== END 2019-01-15 11:09 | disposition home or self-care (01) ==
LOC: C.ER 08:13
DX: O26.893 Other specified pregnancy related conditions, third trimester (principal); Z3A.28 28 weeks gestation of pregnancy; J45.909 Unspecified asthma, uncomplicated
CPT/HCPCS: 36415; 80053; 85025; 94640; 96365; 96366; 96375; 99285; J2920; J3475

== ENCOUNTER 2019-01-25 03:39 | Emergency (ER) | payer OTHER | END 2019-01-25 05:01 | disposition home or self-care (01) | LOC: C.ER 03:39 ==